=== PATIENT | male | born 1950 | race Caucasian/White ===

== ENCOUNTER 2023-03-18 11:58 | Emergency (ER) | payer OTHER, SELFPAY ==
[2023-03-18 12:13] VITALS: BP 189/97; PULSE 85; RESP 18; TEMP 36.8; O2SAT 96
--- NOTE | 2023-03-18 12:15 | DI.RAD_ITS ---
Exam(s) XR CHEST 2V PA LATERAL EXAM: XR CHEST 2V PA LATERAL CLINICAL HISTORY: copd productive cough TECHNIQUE: 2D digital imaging was performed. COMPARISON: No exams were available for comparison FINDINGS: HEART: Normal size. Aorta: Not dilated. PULMONARY VASCULATURE: Normal. LUNGS: Hyperinflated. Clear. PLEURAL SPACE: No pleural effusion or pneumothorax. BONE:Unremarkable for age. Soft tissues: Unremarkable. IMPRESSION: No acute abnormality. DATA REPOSITORY: RADIATION DOSE DELIVERED:
--- NOTE | 2023-03-18 12:35 | ED.GENADUL_ITS ---
HPI General Date/Time Provider Initiated Documentation: 03/18/23 12:21 . HPI Narrative: 72-year-old male history of COPD presents with productive cough over the last several days, shortness of breath mild nausea. Related Data Home Medications Medication Instructions Recorded Confirmed carboxymethylcellulose sodium 0.5 1 drp ophthalmic (eye) QID 08/09/21 03/18/23 % eye drops timolol maleate 0.5 % eye drops 1 drp ophthalmic (eye) DAILY 08/09/21 03/18/23 travoprost 0.004 % eye drops 1 drp ophthalmic (eye) QPM 08/09/21 03/18/23 amoxicillin 875 mg-potassium 1 tab PO BID 7 days #14 tabs 03/18/23 clavulanate 125 mg tablet azithromycin 250 mg tablet See Rx Instructions PO .COMPLEX #6 03/18/23 tabs tamsulosin 0.4 mg capsule (Flomax) 0.4 mg PO QHS 03/18/23 03/18/23 Previous Rx's Medication Instructions Recorded amoxicillin 875 mg-potassium 1 tab PO BID 7 days #14 tabs 03/18/23 clavulanate 125 mg tablet azithromycin 250 mg tablet See Rx Instructions PO .COMPLEX #6 03/18/23 tabs Allergies Allergy/AdvReac Type Severity Reaction Status Date / Time latanoprost Allergy Unknown Verified 03/18/23 12:11 General Stated Complaint: RespSymp MANJEET: 3 Review of Systems Narrative: Review of Systems Constitutional: negative Eyes: negative ENT: negative Cardiovascular: negative Respiratory: Cough, shortness of breath Gastrointestinal: negative : negative Musculoskeletal: negative Skin: negative Neurologic: negative Psych: negative Exam Narrative Exam Narrative: Physical Examination General: alert, awake, cooperative, resting comfortably, no acute distress HEENT: normocephalic, atraumatic; PERRL, EOM intact, conjunctiva normal; no nasal discharge; moist mucous membranes, oral and pharyngeal mucosa normal, tolerating secretions Neck: supple, trachea midline; full ROM Chest: normal to inspection Respiratory: normal respiratory effort, speaking in full sentences, wet cough, scattered rhonchorous breath sounds Cardiac: regular rate, regular rhythm, S1S2 intact, no murmurs rubs or gallops GI: abdomen soft, non-tender, non-distended; no palpable mass or hepatosplenomegaly Skin: no lesions, rashes or trauma appreciated Neuro: AAOx3, normal speech, moving all extremities Psych: Appropriate mood and affect Course Vital Signs Vital signs: Vital Signs Temperature 36.8 C 03/18/23 12:13 Pulse 85 03/18/23 12:13 Respiratory Rate 18 03/18/23 12:13 Blood Pressure 189/97 H 03/18/23 12:13 Pulse Oximetry 96 03/18/23 12:13 Temperature 36.8 C 03/18/23 12:13 Temperature Source Oral 03/18/23 12:13 Pulse 85 03/18/23 12:13 Respiratory Rate 18 03/18/23 12:13 Respiratory Effort Short of Breath 03/18/23 12:23 Respiratory Depth Normal 03/18/23 12:23 Blood Pressure 189/97 H 03/18/23 12:13 Blood Pressure Position Sitting 03/18/23 12:13 Pulse Oximetry 96 03/18/23 12:13 Oxygen Delivery Method Room Air 03/18/23 12:13 Oxygen Flow Rate 0 03/18/23 12:13 Pain Level 8 03/18/23 12:13 Medical Decision Making 72-year-old male history of COPD presents with productive cough for the last s everal days mild shortness of breath, afebrile nontoxic not hypoxic speaking full sentences, does have wet cough and scattered rhonchorous breath sounds. Consider viral URI versus pneumonia leading to COPD exacerbation. Lower suspicion for ACS PE pneumothorax or aortic pathology. Trial of nebs and steroids, viral swab, chest x-ray close reassessed 14:34 patient resting notably no acute distress. Will start patient on antibiotic given COPD and physical examination despite x-ray read as negative. Quality:SDOH Health Related Social Needs: No Data to Display PFSH All Active Problems (Updated 03/18/23 @ 14:35 by Melo Bryant MD) Cough (Acute) Degenerative joint disease of right hip (Acute) Greater trochanteric bursitis of both hips (Acute) DEPO MEDROL 09/24/21 Glaucoma (Chronic) Medical History Tinnitus History of rectal abscess flaca rectal abcess Erectile dysfunction Low back pain Smoker Surgical History (Updated 08/09/21 @ 13:06 by Maldonado Ivey RN) History of appendectomy Social History Smoking/Tobacco Use Status: Current every day Tobacco Type: cigarettes Smoking risk assessment performed?: Yes Alcohol Intake: current Alcohol Intake frequency: a few times a week Drug use: Never Substance use type: does not use Housing: house Do you feel safe at home: Yes Do you feel safe in your relationship?: Yes Discharge Plan Disposition Patient Disposition: Home Condition: Stable Discharge Details Clinical Impression: Cough Primary Care Provider: Unknown,Unknown ED Provider: Melo Bryant Home Meds and New Rx's Prescriptions: New azithromycin 250 mg tablet See Rx Instructions .ROUTE .COMPLEX Qty: 6 0RF Rx Instructions: For 250 mg dose pack: take 500 mg today (day 1), then 250 mg for 4 days (days 2-5) amoxicillin-pot clavulanate 875-125 mg tablet 1 tab PO BID 7 Days Qty: 14 0RF No Action carboxymethylcellulose sodium 0.5 % drops 1 drp ophthalmic (eye) QID timolol maleate 0.5 % drops 1 drp ophthalmic (eye) DAILY travoprost 0.004 % drops 1 drp ophthalmic (eye) QPM tamsulosin [Flomax] 0.4 mg capsule 0.4 mg PO QHS Discharge Instructions Instructions: Acute Cough (ED)
[2023-03-18] MEDS: Dexamethasone 10 MG/ML VIAL PO (13:03)
[2023-03-18] MEDS: Albuterol/Ipratropium 3 ML UPD VIAL UPD (13:03)
== END 2023-03-18 14:44 | disposition home or self-care (01) ==
PROVIDERS: Emergency Provider Emergency Medicine
DX: R05.9 Cough, unspecified (principal); J44.9 Chronic obstructive pulmonary disease, unspecified; F17.210 Nicotine dependence, cigarettes, uncomplicated
CPT/HCPCS: 87426; 94640; 99284; 71046; 99283; J1100; J7620

== ENCOUNTER 2023-03-19 13:30 | Inpatient (IN) | payer OTHER, SELFPAY ==
[2023-03-19] VITALS (162 sets, daily range): BP systolic 126–217; BP diastolic 64–125; PULSE 73–96; RESP 2–30; TEMP 36.8; O2SAT 90–95
--- NOTE | 2023-03-19 13:30 | RT.EKG_ITS ---
APPROVED REPORT Exam: Resting ECG Reason for Exam: sob Patient Location: E HR:89 bpm ECG Measurements Heart Rate 89 AXIS DE 209 P 85 QRSd 99 QRS 65 QT 348 T 73 QTc 423 Conclusion Sinus rhythm...normal P axis, V-rate 60- 99 Probable left atrial enlargement...P >50mS, <-0.10mV V1
[2023-03-19] MEDS: Albuterol/Ipratropium 3 ML UPD VIAL 6 ML UPD (13:48)
[2023-03-19 14:03] LABS: Abs Immature Grans 0.02 10^3/uL (0.0-0.06); Absolute Basophil Count 0.02 10^3/uL (0.0-0.2); Absolute Eosinophil Count 0.05 10^3/uL (0.0-0.7); Absolute Lymphocyte Count 0.97 10^3/uL (1.2-3.4); Absolute Monocyte Count 0.63 10^3/uL (0.1-0.8); Absolute Neutrophil Count 4.29 10^3/uL (1.2-6.7); BE (Venous) 5 mmol/L (-2-3); Basophils % 0.3; Eosinophils % 0.8; HCO3 (Venous) 30 mmol/L (23-28); HCT 46.8 % (40.0-50.0); Immature Grans % 0.3; Lactate 0.8 mmol/L (0.6-1.4); Lymphocytes % 16.2; MCH 32.6 pg (27.0-33.0); MCHC 36.3 % (32.0-36.0); MCV 90 fL (80-95); MPV 8.8 fL (8.0-11.0); Monocytes % 10.5; Neutrophils % 71.9; O2 Sat (Venous) 65 %; Platelet Count 142 10^3/uL (130-400); RBC 5.21 10^6/uL (4.36-5.78); RDW 12.4 % (11.8-14.1); TCO2 (Venous) 26 mmol/L (24-29); WBC 5.98 10^3/uL (4.4-10.8); pCO2 (Venous) 52 mmHg (41-51); pH (Venous) 7.37 (7.31-7.41); pO2 (Venous) 33 mmHg
[2023-03-19] MEDS: Dexamethasone 10 MG/ML VIAL IVP (14:14)
[2023-03-19] MEDS: Albuterol 2.5 MG/3 ML INH SOLN VIAL UPD ×2 (14:15→15:57)
[2023-03-19] MEDS: Normal Saline 1,000 ML 500 ML IV (14:15)
[2023-03-19 14:23] LABS: ALT 54 U/L (16-63); AST 48 U/L (15-37); Albumin 4.2 g/dL (3.4-5.0); Alkaline Phosphatase 61 U/L (46-116); Anion Gap 8.9 mmol/L (3-11); BUN 8 mg/dL (7-18); Bilirubin, Total 0.7 mg/dL (0.2-1.0); CO2 29.1 mmol/L (21.0-32.0); CREATININE 0.7 mg/dL (0.70-1.30); Calcium 9.3 mg/dL (8.5-10.1); Chloride 92 mmol/L (98-107); Estimated GFR 98.51 (mL/min/1.73m2); Glucose 102 mg/dL (74-106); Potassium 3.9 mmol/L (3.5-5.1); Sodium 130 mmol/L (136-145); Total Protein 7.5 g/dL (6.4-8.2); Troponin I < 50 ng/L (< or =60)
[2023-03-19 14:46] LABS: COVID-19 PCR Negative (Negative); Influenza A PCR Negative (Negative); Influenza B PCR Negative (Negative); RSV PCR Negative (Negative)
[2023-03-19] MEDS: Omnipaque 350 MG/ML 100 ML BTL IJ (14:47)
[2023-03-19 14:52] LABS: Source Nasopharynx
[2023-03-19] MEDS: Normal Saline - Diluent 50 ML VIAL IJ (14:52)
--- NOTE | 2023-03-19 15:05 | DI.CT_ITS ---
Exam(s) CT CHEST PE CTA EXAM: CT CHEST PE CTA CLINICAL HISTORY: chest pain, shortness of breath. TECHNIQUE: Imaging Protocol: CT angiography of the chest was performed using pulmonary embolus ivonne col. Multi planar reconstructions were performed. CONTRAST MATERIAL: Intravenous: Omnipaque 350 Contrast volume: 100 cc COMPARISON: No exams were available for comparison FINDINGS: CHEST: PULMONARY ARTERIES: There are no intraluminal filling defects to suggest acute pulmonary emboli. LUNGS: There are no infiltrates nor evidence of pulmonary infarction.. There are no pleural effusions . MEDIASTINUM: There is no hilar nor mediastinal adenopathy. Visualized thyroid unremarkable. CARDIAC: Heart size is upper normal. There is no pericardial effusion.Caliber of the thoracic aorta is within normal limits. No evidence of aortic dissection. There is no significant shift of the inte rventricular septum. PARTIALLY VISUALIZED UPPERMOST ABDOMEN: No significant contrast reflux into the intrahepatic IVC. No adrenal masses. No splenomegaly. Small hiatal hernia noted. OSSEOUS: No significant osseous lesions.. IMPRESSION: 1. No evidence of acute pulmonary emboli. No evidence of pulmonary infarction.No pleural effusions. 2. No evidence of aortic dissection nor pericardial effusion. Called by myself to ER provider. RADIATION DOSE DELIVERED: 320.81mGy.cm Total DLP DATA REPOSITORY: All CT scans at this facility are submitted to the National Radiology Data Registry (NRDR) Dose Index Registry (DIR) with the [employer] (ACR). RADIATION OPTIMIZATION: All CT scans at this facility use at least one of these dose optimization te chniques: automated exposure control; mA and/or kV adjustment per patient size (includes targeted exa ms where dose is matched to clinical indication); or iterative reconstruction.
--- NOTE | 2023-03-19 15:15 | RT.EKG_ITS ---
APPROVED REPORT Exam: Resting ECG Reason for Exam: chest pain Patient Location: E HR:77 bpm ECG Measurements Heart Rate 77 AXIS IA 167 P 83 QRSd 94 QRS 64 QT 366 T 71 QTc 415 Conclusion Sinus rhythm...normal P axis, V-rate 60- 99 Narrow complex normal sinus rhythm at a rate of 77. Normal axis. Intervals within normal limits. N o ST segment abnormalities. T wave inversion in aVL appears similar to prior dated earlier today.
--- NOTE | 2023-03-19 15:33 | W.ED.GENAD ---
HPI <HECTOR Sosa - Last Filed: 03/22/23 11:00> General Date/Time Provider Initiated Documentation: 03/19/23 13:37. HPI Narrative: 72-year-old male with history of glaucoma and COPD presents with report of worsening shortness of breath, has been sick for the past week, unable to ambulate without dyspnea. Denies any fever or chills. Denies any calf pain or swelling. States he started on Augmentin for suspected pneumonia yesterday. Related Data Home Medications Medication Instructions Recorded Confirmed carboxymethylcellulose sodium 0.5 1 drp ophthalmic (eye) QID 08/09/21 03/19/23 % eye drops timolol maleate 0.5 % eye drops 1 drp ophthalmic (eye) DAILY 08/09/21 03/19/23 travoprost 0.004 % eye drops 1 drp ophthalmic (eye) QPM 08/09/21 03/19/23 tamsulosin 0.4 mg capsule (Flomax) 0.4 mg PO QHS 03/18/23 03/19/23 albuterol sulfate 90 mcg/actuation 2 puff inhalation Q4H PRN #8.5 03/21/23 aerosol inhaler grams azithromycin 250 mg tablet See Rx Instructions PO .COMPLEX #6 03/21/23 tabs budesonide-formoterol HFA 160 2 puff inhalation BID #10.2 grams 03/21/23 mcg-4.5 mcg/actuation aerosol inhaler (Symbicort) inhalational spacing device #1 ea 03/21/23 (Aerochamber MV spacer) metoprolol succinate 50 mg 50 mg PO DAILY #30 tabs 03/21/23 tablet,extended release 24 hr prednisone 20 mg tablet 40 mg (2 x 20 mg) PO DAILY #10 tabs 03/21/23 Previous Rx's Medication Instructions Recorded albuterol sulfate 90 mcg/actuation 2 puff inhalation Q4H PRN #8.5 03/21/23 aerosol inhaler grams azithromycin 250 mg tablet See Rx Instructions PO .COMPLEX #6 03/21/23 tabs budesonide-formoterol HFA 160 2 puff inhalation BID #10.2 grams 03/21/23 mcg-4.5 mcg/actuation aerosol inhaler (Symbicort) inhalational spacing device #1 ea 03/21/23 (Aerochamber MV spacer) metoprolol succinate 50 mg 50 mg PO DAILY #30 tabs 03/21/23 tablet,extended release 24 hr prednisone 20 mg tablet 40 mg (2 x 20 mg) PO DAILY #10 tabs 03/21/23 Allergies Allergy/AdvReac Type Severity Reaction Status Date / Time latanoprost Allergy Unknown Other (See Verified 03/20/23 11:13 Comment) General Stated Complaint: RespSymp MANJEET: 3 Course <HECTOR Sosa - Last Filed: 03/22/23 11:00> Vital Signs Vital signs: Vital Signs Pulse 90 03/19/23 13:35 Respiratory Rate 22 03/19/23 13:35 Blood Pressure 217/110 H 03/19/23 13:35 Pulse Oximetry 92 03/19/23 13:35 Pulse 76 03/19/23 15:11 Respiratory Rate 21 03/19/23 15:28 Respiratory Effort Short of Breath, Labored 03/19/23 14:05 Respiratory Depth Shallow 03/19/23 14:05 Blood Pressure 190/89 H 03/19/23 15:11 Blood Pressure Position Sitting 03/19/23 13:39 Pulse Oximetry 92 03/19/23 13:48 Oxygen Delivery Method Room Air 03/19/23 13:48 Oxygen Flow Rate 0 03/19/23 13:48 Pain Level 0 03/19/23 13:39 Lab/Test Results Lab/Test Results: 03/19/23 13:52 Blood Blood Culture - Pending 03/19/23 13:44 Blood Blood Culture - Pending Laboratory Tests Range/Units 03/19/23 03/19/23 13:50 13:52 WBC (4.4-10.8) 10^3/uL 5.98 RBC (4.36-5.78) 10^6/uL 5.21 Hgb (13.5-17.5) g/dL 17.0 Hct (40.0-50.0) % 46.8 MCV (80-95) fL 90 MCH (27.0-33.0) pg 32.6 MCHC (32.0-36.0) % 36.3 H RDW (11.8-14.1) % 12.4 Plt Count (130-400) 10^3/uL 142 MPV (8.0-11.0) fL 8.8 Immature Gran % 0.3 Neutrophils % 71.9 Lymphocytes % 16.2 Monocytes % 10.5 Eosinophils % 0.8 Basophils % 0.3 Nucleated RBC % (0.0-0.3) % 0.0 Absolute Neutrophils (1.2-6.7) 10^3/uL 4.29 Absolute Lymphocytes (1.2-3.4) 10^3/uL 0.97 L Absolute Monocytes (0.1-0.8) 10^3/uL 0.63 Absolute Eosinophils (0.0-0.7) 10^3/uL 0.05 Absolute Basophils (0.0-0.2) 10^3/uL 0.02 VBG pH (7.31-7.41) 7.37 VBG pCO2 (41-51) mmHg 52 H VBG pO2 mmHg 33 VBG HCO3 (23-28) mmol/L 30 H VBG Total CO2 (24-29) mmol/L 26 VBG O2 Saturation % 65 VBG Base Excess (-2-3) mmol/L 5 H VBG Lactate (0.6-1.4) mmol/L 0.8 Sodium (136-145) mmol/L 130 L Potassium (3.5-5.1) mmol/L 3.9 Chloride (98-107) mmol/L 92 L Carbon Dioxide (21.0-32.0) mmol/L 29.1 Anion Gap (3-11) mmol/L 8.9 BUN (7-18) mg/dL 8 Creatinine (0.70-1.30) mg/dL 0.7 Est GFR (CKD-EPI 2020) (mL/min/1.73m2) 98.51 Glucose (74-106) mg/dL 102 Calcium (8.5-10.1) mg/dL 9.3 Total Bilirubin (0.2-1.0) mg/dL 0.7 AST (15-37) U/L 48 H ALT (16-63) U/L 54 Alkaline Phosphatase (46-116) U/L 61 Troponin I (< or =60) ng/L < 50 Total Protein (6.4-8.2) g/dL 7.5 Albumin (3.4-5.0) g/dL 4.2 COVID-19 Source Nasopharynx SARS-CoV-2 (PCR) (Negative) Negative Influenza Type A (PCR) (Negative) Negative Influenza Type B (PCR) (Negative) Negative RSV (PCR) (Negative) Negative Medical Decision Making <HECTOR Sosa - Last Filed: 03/22/23 11:00> 72-year-old male presenting with report of dyspnea, persistent cough, cannot catch his breath per patient On exam, patient and moderate respiratory distress, diminished with diffuse wheezing, oxygen 92% on room air, not hypoxic with exertion but unable to ambulate secondary to dyspnea CTA pending as chest x-ray clear yesterday Initially quite hypertensive, blood pressure is mildly improved 190/89, did have 1 episode of chest pain while ambulating, EKG performed without acute change, specifically no injury or ischemia noted Will repeat troponin level Low suspicion clinically for cardiac etiology of patient's complaints I suspect patient may benefit from inpatient hospitalization for steroids, repeat nebulizers, and antibiotics for bronchitis, pending CT chest at this time Will transition care Quality:SDOH Health Related Social Needs: No Data to Display <Danielle Harris NP - Last Filed: 03/19/23 19:58> 72-year-old male presenting with report of dyspnea, persistent cough, cannot catch his breath per patient On exam, patient and moderate respiratory distress, diminished with diffuse wheezing, oxygen 92% on room air, not hypoxic with exertion but unable to ambulate secondary to dyspnea CTA pending as chest x-ray clear yesterday Initially quite hypertensive, blood pressure is mildly improved 190/89, did have 1 episode of chest pain while ambulating, EKG performed without acute change, specifically no injury or ischemia noted Will repeat troponin level Low suspicion clinically for cardiac etiology of patient's complaints I suspect patient may benefit from inpatient hospitalization for steroids, repeat nebulizers, and antibiotics for bronchitis, pending CT chest at this time Will transition care 1605: Care assumed from provider (HECTOR Sosa) Please see their initial HPI, PE, and documentation. Discussed patient details and case and pending workup and disposition. Patient is hemodynamically stable, and alert and oriented. At the time of signout awaiting CT result. Patient is on room air satting approximately 93%. He does have congestion noted, expiratory wheezes throughout. He does have shallow breaths and some spasmodic type cough. He denies any chest pain currently. He is alert and oriented he was given Augmentin yesterday he does have an albuterol inhaler at home. He reports that he took some Mucinex last night and brought up some green phlegm. CT is negative, heart size is upper normal, no pleural effusions. [facility] Due to patient's dyspnea and decreased road challenge I will consider calling the [place] for possible transfer and admission. Pending repeat troponin. Patient has received his second albuterol nebulizer he has had 2 DuoNebs previously to this. He is O2 sat is now 90%-91% on room air. His blood pressure is 185/98. Heart rate is 82. 1644: [place] paged for admission, DDX includes pulmonary fibrosis, Pneumonia, however negative CT, for PE, Infiltrates, POCUS exam ordered, will request assistance with Dr. Whaley, POCUS. Per Dr. Whaley POCUS is unremarkable normal EF, please see his official report. 1708: [facility] paged. Patient was placed on 3 L nasal cannula by staff nurse icu resource team he is satting 94% at this time. 1728: [place] [facility] spoke with [facility], he reports they are at capacity. Will page hospitalist. 1817: Hospitalist paged by [facility] maker, . ETOh level added on and TSH. 1829: Dr. Kline hospitalist discussed patient case and details, he agrees to accept patient for COPD exacerbation and hypoxia unresponsive to medications. . Informed patient and family on plan of care they verbalized understanding. This text was generated using [employer] dictation system, please disregard any oddities of phrase or misspellings. Imaging Data Radiologic Study: Imaging: CT Scan Radiologist's impression: Exam(s) a CT:CT chest PE CTA Exam(s) CT CHEST PE CTA EXAM: CT CHEST PE CTA CLINICAL HISTORY: chest pain, shortness of breath. TECHNIQUE: Imaging Protocol: CT angiography of the chest was performed using pulmonary embolus protocol. Multi planar reconstructions were performed. CONTRAST MATERIAL: Intravenous: Omnipaque 350 Contrast volume: 100 cc COMPARISON: No exams were available for comparison FINDINGS: CHEST: PULMONARY ARTERIES: There are no intraluminal filling defects to suggest acute pulmonary emboli. LUNGS: There are no infiltrates nor evidence of pulmonary infarction.. There are no pleural effusions. MEDIASTINUM: There is no hilar nor mediastinal adenopathy. Visualized thyroid unremarkable. CARDIAC: Heart size is upper normal. There is no pericardial effusion.Caliber of the thoracic aorta is within normal limits. No evidence of aortic dissection. There is no significant shift of the interventricular septum. PARTIALLY VISUALIZED UPPERMOST ABDOMEN: No significant contrast reflux into the intrahepatic IVC. No adrenal masses. No splenomegaly. Small hiatal hernia noted. OSSEOUS: No significant osseous lesions.. IMPRESSION: 1. No evidence of acute pulmonary emboli. No evidence of pulmonary infarction.No pleural effusions. 2. No evidence of aortic dissection nor pericardial effusion. Lab Data Lab results reviewed: Yes I reviewed the patient's lab results. Labs: 03/19/23 13:52 Blood Blood Culture - Pending 03/19/23 13:44 Blood Blood Culture - Pending Laboratory Tests Range/Units 03/19/23 03/19/23 13:50 13:52 WBC (4.4-10.8) 10^3/uL 5.98 RBC (4.36-5.78) 10^6/uL 5.21 Hgb (13.5-17.5) g/dL 17.0 Hct (40.0-50.0) % 46.8 MCV (80-95) fL 90 MCH (27.0-33.0) pg 32.6 MCHC (32.0-36.0) % 36.3 H RDW (11.8-14.1) % 12.4 Plt Count (130-400) 10^3/uL 142 MPV (8.0-11.0) fL 8.8 Immature Gran % 0.3 Neutrophils % 71.9 Lymphocytes % 16.2 Monocytes % 10.5 Eosinophils % 0.8 Basophils % 0.3 Nucleated RBC % (0.0-0.3) % 0.0 Absolute Neutrophils (1.2-6.7) 10^3/uL 4.29 Absolute Lymphocytes (1.2-3.4) 10^3/uL 0.97 L Absolute Monocytes (0.1-0.8) 10^3/uL 0.63 Absolute Eosinophils (0.0-0.7) 10^3/uL 0.05 Absolute Basophils (0.0-0.2) 10^3/uL 0.02 VBG pH (7.31-7.41) 7.37 VBG pCO2 (41-51) mmHg 52 H VBG pO2 mmHg 33 VBG HCO3 (23-28) mmol/L 30 H VBG Total CO2 (24-29) mmol/L 26 VBG O2 Saturation % 65 VBG Base Excess (-2-3) mmol/L 5 H VBG Lactate (0.6-1.4) mmol/L 0.8 Sodium (136-145) mmol/L 130 L Potassium (3.5-5.1) mmol/L 3.9 Chloride (98-107) mmol/L 92 L Carbon Dioxide (21.0-32.0) mmol/L 29.1 Anion Gap (3-11) mmol/L 8.9 BUN (7-18) mg/dL 8 Creatinine (0.70-1.30) mg/dL 0.7 Est GFR (CKD-EPI 2020) (mL/min/1.73m2) 98.51 Glucose (74-106) mg/dL 102 Calcium (8.5-10.1) mg/dL 9.3 Total Bilirubin (0.2-1.0) mg/dL 0.7 AST (15-37) U/L 48 H ALT (16-63) U/L 54 Alkaline Phosphatase (46-116) U/L 61 Troponin I (< or =60) ng/L < 50 Total Protein (6.4-8.2) g/dL 7.5 Albumin (3.4-5.0) g/dL 4.2 COVID-19 Source Nasopharynx SARS-CoV-2 (PCR) (Negative) Negative Influenza Type A (PCR) (Negative) Negative Influenza Type B (PCR) (Negative) Negative RSV (PCR) (Negative) Negative PFSH <HECTOR Sosa - Last Filed: 03/22/23 11:00> All Active Problems (Updated 03/22/23 @ 00:01 by KAIA MADRIGAL) Viral syndrome (Acute) Hypertension (Chronic) COPD exacerbation (Acute) Cough (Acute) Degenerative joint disease of right hip (Acute) Greater trochanteric bursitis of both hips (Acute) DEPO MEDROL 09/24/21 Glaucoma (Chronic) Medical History Tinnitus History of rectal abscess flaca rectal abcess Erectile dysfunction Low back pain Smoker Surgical History History of appendectomy Social History Smoking/Tobacco Use Status: Current every day Tobacco Type: cigarettes Smoking risk assessment performed?: Yes Alcohol Intake: current Alcohol Intake frequency: a few times a week Drug use: Never Substance use type: does not use Housing: house Do you feel safe at home: Yes Do you feel safe in your relationship?: Yes Sign Out <HECTOR Sosa - Last Filed: 03/22/23 11:00> Sign Out Data: Sign Out Comment: pending cta, reassessment and dispo Last updated by Katheryn Avina PA at 03/19/23 15:56 PAWSS <HECTOR Sosa - Last Filed: 03/22/23 11:00> Have you Been Recently Intoxicated or Drunk Within the Last 30 days?: No Have you Ever Experienced Previous Episodes of Alcohol Withdrawal?: No Have you ever Experienced Withdrawal Seizures?: No Have you ever Experienced Delirium Tremens(DT)s?: No Have you ever undergone Alcohol Rehabilitation Treatment (i.e, inpt ot outpatient treatment programs)?: No Have you ever Experienced Blackouts?: No Have you ever Combined Alcohol with other Downers within the last 90 days?: No Have you ever Combined Alcohol with any other Substance of Abuse during the last 90 days?: No Result: 0 <Danielle Harris NP - Last Filed: 03/19/23 19:58> Result: 0 Discharge Plan Disposition Patient Disposition: Admit to [facility] Discharge Details Clinical Impression: Hypoxia, COPD exacerbation, Hypertension Admit Date/Time: 03/19/23 18:44 Admit Provider: Barry Cheatham Attending Provider: Barry Cheatham Primary Care Provider: Unknown,Unknown ED Provider: Danielle Harris Discharge Data Discharge Date/Time-TO BE ENTERED AT DEPARTURE: 03/19/23 20:21
[2023-03-19 16:37] LABS: NT-proBNP 118 pg/mL (<300)
--- NOTE | 2023-03-19 16:50 | W.EDPROG ---
Date of service: 03/19/23 Time of Service: 16:50 Medical Decision Making I was asked to see this patient by his advanced practitioner. In brief this is a 72-year-old male with an extensive history of tobacco use with shortness of breath and hypoxia. I completed a limited bedside echocardiogram which was reassuring. He had no B-lines to suggest acute heart failure as the cause of his hypoxia. It certainly possible that he could have pulmonary hypertension given extensive tobacco use. Given his acute respiratory failure with hypoxia history he will benefit from hospitalization. He may benefit from an echocardiogram or possibly pulmonary function testing. He had a CT performed today showing no PE no pleural effusions and no evidence of aortic dissection. His bicarbonate was normal reassuring against chronic retention. He was no making troponin and I do not feel that he requires tertiary care transfer at this stage. His venous blood gas did not show any acidemia but did show mild hypercarbia. Quality:SDAZ Health Related Social Needs: No Data to Display Sign Out Sign Out Data: Sign Out Comment: pending cta, reassessment and dispo Last updated by Katheryn Avina PA at 03/19/23 15:56 Discharge Plan Disposition Patient Disposition: Admit to [facility] Discharge Details Clinical Impression: Hypoxia, COPD exacerbation, Hypertension Admit Date/Time: 03/19/23 18:44 Admit Provider: Barry Cheatham Attending Provider: Barry Cheatham Primary Care Provider: Unknown,Unknown ED Provider: Danielle aHrris POCUS Exam (ED) Limited Cardiac Exam DATE OF EXAM: 03/19/23 TIME OF EXAM: 17:04 PROVIDER THAT PERFORMED THE STUDY: Alpesh Whaley IS THIS A REPEAT EXAM DURING THIS ENCOUNTER: no REASON FOR EXAM: Dyspnea VISUALIZED STRUCTURES: Four Chambers, Left ventricle and LVOT VIEW OBTAINED: Apical 4-Chamber, Parasternal long-axis, Subxiphoid and Other (Bilateral lungs) PERTINENT FINDINGS/IMPRESSION: No LV dysfunction and No pericardial effusion DIFFERENTIAL DIAGNOSES: Aortic outflow track less than 4 cm, good squeeze, RV less than LV, no significant pericardial effusion. No B-lines bilaterally. Exam complete
[2023-03-19 17:14] LABS: Troponin I < 50 ng/L (< or =60)
--- NOTE | 2023-03-19 18:42 | W.PM.HP.N ---
Date of service: 03/19/23 Time of Service: 18:42 Assessment and Plan Assessment and plan (1) Acute hypoxic respiratory failure: Start date: 03/19/23 Status: Acute Assessment and plan: This is a 72-year-old gentleman who is chronic smoker presenting with complications of a most likely viral URI and viral syndrome with some abdominal symptoms. He was initiated on oral antibiotics and this will be continued with IV antibiotics while hospitalized as well as close supplementation as needed and for aggressive nebulizer treatments. Being a smoker and may be slow to resolve. He presently is not requiring oxygen supplementation. He did have mild pCO2 elevation and increased bicarb indicating more of a chronic COPD picture though he is untreated as outpatient. He should consider tobacco cessation and at least rescue inhalers as outpatient. He is a full code. (2) COPD exacerbation: Start date: 03/19/23 Status: Acute Assessment and plan: This is a patient who has no history of COPD though he does have daily tobacco use at 1.5 packs/day. He was advised to stop smoking long-term and we will continue inpatient treatment with his mild hypoxemia and significant findings on physical exam with expiratory wheeze. He was negative for RSV/COVID/flu and does have some mild GI symptoms which may indicate viral syndrome. Since his pain is associated with left lower quadrant, diverticulitis should be considered if this worsens. Further evaluation with a CT of the abdomen would be indicated. At this time he is mostly having respiratory symptoms. (3) Viral syndrome: Start date: 03/19/23 Status: Acute Assessment and plan: Associated with upper respiratory infection and some focal left lower quadrant abdominal discomfort which should be observed for now. Consider imaging and extension of IV antibiotic therapy if this worsens. For now monitor on regular diet. (4) Hypertension: Status: Chronic Assessment and plan: Patient does have a history of chronic hypertension but is not on medical therapy for this problem though it appears to be exacerbated in the ED and has improved with respiratory treatments and initiation of low-dose metoprolol. At discharge, long-term treatment will be continued at the [facility] with follow-up. Qualifiers: Hypertension type: primary hypertension Qualified Code(s): I10 - Essential (primary) hypertension History of Present Illness History of Present Illness Chief Complaint: Cough and wheezing with chest pressure and difficulty breathing Narrative: This is a 72-year-old male patient chronically smokes tobacco at 1.5 packs per day but is not on respiratory treatments, presenting with onset of cold symptoms 03/15/2023 and working with abdominal symptoms having slight left lower quadrant abdominal discomfort and loose stools on 03/16/2023. Patient's has a fractured heel and he is doing the shopping which he thinks increase his exposure to viral infections from his usual baseline behavior. He continues to smoke tobacco but symptoms persisted and he eventually reported to the ED on 03/18/2023 with initiation of oral antibiotic therapy and inhaler therapy but then returning on the day of admission 03/19/2023 with worsening symptoms. He was borderline hypoxic and VBG in the ED did reveal possible chronic respiratory problems with his bicarb elevated and pCO2 slightly elevated. He did have some oxygen therapy in the ED with improvement of his pulse oximeter from the low 90s to 93%. Verbally it was stated that his pulse oximeter did dip below 90%. When I saw the patient he was off oxygen but still having some difficulty breathing and expiratory wheeze audible at the bedside. He denies any significant fever and had no blood with his loose stools. He denies any significant vomiting. He does have a history of a colonoscopy when he was in [facility] and 31 years of age in the service. [facility] and states that he does do colon cancer screening with a test card twice a year. He has no history of diverticulosis. CT of the chest did not reveal any acute infiltrates or pulmonary embolus. He was initiated on IV steroids in the ED and this will be continued with patient being switched over to IV antibiotic therapy with Rocephin and Zithromax having been on oral Augmentin and Zithromax as an outpatient. In the ED the patient WBC was normal and troponin was negative. He did complain of some slight discomfort of his chest with his coughing. He does ruminate somewhat over his history but appears to be a fair historian. He is on minimal medical therapy at the [facility]. He is a full code. Review of Systems Narrative: 13 point review of systems otherwise unrevealing or stable. The patient's abdominal discomfort is intermittent at this time. PFSH All Active Problems (Updated 03/20/23 @ 10:19 by Barry Cheatham) Viral syndrome (Acute) Acute hypoxic respiratory failure (Acute) Hypertension (Chronic) COPD exacerbation (Acute) Hypoxia (Acute) Cough (Acute) Degenerative joint disease of right hip (Acute) Greater trochanteric bursitis of both hips (Acute) DEPO MEDROL 09/24/21 Glaucoma (Chronic) Medical History Tinnitus History of rectal abscess flaca rectal abcess Erectile dysfunction Low back pain Smoker Surgical History History of appendectomy Social History Smoking/Tobacco Use Status: Current every day Tobacco Type: cigarettes Smoking risk assessment performed?: Yes Alcohol Intake: current Alcohol Intake frequency: a few times a week Drug use: Never Substance use type: does not use Housing: house Do you feel safe at home: Yes Do you feel safe in your relationship?: Yes Meds Allergies and Home Medications Allergies Allergy/AdvReac Type Severity Reaction Status Date / Time latanoprost Allergy Unknown Verified 03/19/23 13:38 Home Medications Medication Instructions Recorded Confirmed Type carboxymethylcellulose sodium 0.5 1 drp ophthalmic (eye) QID 08/09/21 03/19/23 History % eye drops timolol maleate 0.5 % eye drops 1 drp ophthalmic (eye) DAILY 08/09/21 03/19/23 History travoprost 0.004 % eye drops 1 drp ophthalmic (eye) QPM 08/09/21 03/19/23 History amoxicillin 875 mg-potassium 1 tab PO BID 7 days #14 tabs 03/18/23 03/19/23 Rx clavulanate 125 mg tablet azithromycin 250 mg tablet See Rx Instructions PO .COMPLEX #6 03/18/23 03/19/23 Rx tabs tamsulosin 0.4 mg capsule (Flomax) 0.4 mg PO QHS 03/18/23 03/19/23 History Exam Narrative Exam Narrative: General: Patient appears appropriate for age, thinly built and alert and oriented x 3. He is in no acute distress but slightly anxious with pressured speech. HEENT: Normocephalic, eyes with pupils equal and react light symmetrically, extraocular movement intact and sclera anicteric. Oropharynx with moist mucosa and fair dentition. Neck: Supple without JVD. Back: Normal posture without CVA tenderness. Lungs: Poor aeration diffusely with increased expiratory phase and diffuse expiratory wheeze with no focalizing rales or rhonchi. Increased wheeze and upper airway noise with cough. Heart: Regular rate and rhythm without appreciated. Abdomen: Scaphoid contour, soft and overall nontender to palpation with no palpable hepatosplenomegaly. No focalizing guarding to deep palpation left lower abdomen though this makes him uncomfortable. Bowel sounds positive all quadrants Genitalia/rectal: Exam deferred. Extremities: Without clubbing, cyanosis or pitting edema. Good cap refill. Skin: Darkly tanned with actinic changes over sun exposed areas, rough texture over sun exposed areas, otherwise normal color, warm and dry. Neuro: Cranial nerves II through XII grossly intact, no focal motor deficits. No tremor. Psych: Slightly anxious with pressured speech, normal mood. No abnormal thought processes. Remote and recent memory appear grossly intact. Results Imaging Imaging Studies: EXAM: CT CHEST PE CTA CLINICAL HISTORY: chest pain, shortness of breath. TECHNIQUE: Imaging Protocol: CT angiography of the chest was performed using pulmonary embolus protocol. Multi planar reconstructions were performed. CONTRAST MATERIAL: Intravenous: Omnipaque 350 Contrast volume: 100 cc COMPARISON: No exams were available for comparison FINDINGS: CHEST: PULMONARY ARTERIES: There are no intraluminal filling defects to suggest acute pulmonary emboli. LUNGS: There are no infiltrates nor evidence of pulmonary infarction.. There are no pleural effusions. MEDIASTINUM: There is no hilar nor mediastinal adenopathy. Visualized thyroid unremarkable. CARDIAC: Heart size is upper normal. There is no pericardial effusion.Caliber of the thoracic aorta is within normal limits. No evidence of aortic dissection. There is no significant shift of the interventricular septum. PARTIALLY VISUALIZED UPPERMOST ABDOMEN: No significant contrast reflux into the intrahepatic IVC. No adrenal masses. No splenomegaly. Small hiatal hernia noted. OSSEOUS: No significant osseous lesions.. IMPRESSION: 1. No evidence of acute pulmonary emboli. No evidence of pulmonary infarction.No pleural effusions. 2. No evidence of aortic dissection nor pericardial effusion. Labs 03/20/23 06:07 03/20/23 06:07 Labs: Laboratory Results - last 24 hr 03/19/23 03/19/23 03/19/23 13:50 13:52 16:48 WBC 5.98 RBC 5.21 Hgb 17.0 Hct 46.8 MCV 90 MCH 32.6 MCHC 36.3 H RDW 12.4 Plt Count 142 MPV 8.8 Immature Gran % 0.3 Neutrophils % 71.9 Lymphocytes % 16.2 Monocytes % 10.5 Eosinophils % 0.8 Basophils % 0.3 Nucleated RBC % 0.0 Absolute Neutrophils 4.29 Absolute Lymphocytes 0.97 L Absolute Monocytes 0.63 Absolute Eosinophils 0.05 Absolute Basophils 0.02 VBG pH 7.37 VBG pCO2 52 H VBG pO2 33 VBG HCO3 30 H VBG Total CO2 26 VBG O2 Saturation 65 VBG Base Excess 5 H VBG Lactate 0.8 Sodium 130 L Potassium 3.9 Chloride 92 L Carbon Dioxide 29.1 Anion Gap 8.9 BUN 8 Creatinine 0.7 Est GFR (CKD-EPI 2020) 98.51 Glucose 102 Calcium 9.3 Total Bilirubin 0.7 AST 48 H ALT 54 Alkaline Phosphatase 61 Troponin I < 50 < 50 NT-Pro-B Natriuret Pep 118 Total Protein 7.5 Albumin 4.2 COVID-19 Source Nasopharynx SARS-CoV-2 (PCR) Negative Influenza Type A (PCR) Negative Influenza Type B (PCR) Negative RSV (PCR) Negative Last Vital Signs Pulse 76 03/19/23 17:31 Resp 18 03/19/23 17:32 BP 165/97 H 03/19/23 17:31 Pulse Ox 94 03/19/23 16:54 PAWSS Have you Been Recently Intoxicated or Drunk Within the Last 30 days?: No Have you Ever Experienced Previous Episodes of Alcohol Withdrawal?: No Have you ever Experienced Withdrawal Seizures?: No Have you ever Experienced Delirium Tremens(DT)s?: No Have you ever undergone Alcohol Rehabilitation Treatment (i.e, inpt ot outpatient treatment programs)?: No Have you ever Experienced Blackouts?: No Have you ever Combined Alcohol with other Downers within the last 90 days?: No Have you ever Combined Alcohol with any other Substance of Abuse during the last 90 days?: No Result: 0 Time Spent Time spent with Patient: >75 minutes Time was spent: preparing to see the patient(eg.review tests), obtaining and/or reviewing separately otained hiistory, ordering medications,tests, procedures, indepentently interpreting results, counseling the patient and care coordination
[2023-03-19 18:50] LABS: ETHANOL BLOOD < 3.0 mg/dL (<10)
[2023-03-19] MEDS: methylPREDNISolone SUCC 125 MG VIAL 80 MG IVP (22:10)
[2023-03-19] MEDS: AZITHROMYCIN 500 MG in Normal Saline 250 ML 250 MG IVPB (22:12)
[2023-03-19] MEDS: Normal Saline Flush 10 ML SYR IVP (22:12)
[2023-03-19] MEDS: cefTRIAXone 1 GM/50 ML BAG IVPB (22:12)
[2023-03-19] MEDS: Tamsulosin 0.4 MG CAPCR PO (22:13)
[2023-03-19] MEDS: Albuterol/Ipratropium 3 ML UPD VIAL UPD (22:26)
[2023-03-20] VITALS (11 sets, daily range): BP systolic 134–167; BP diastolic 80–91; PULSE 65–85; RESP 2–20; TEMP 36.6–37.3; O2SAT 90–96
[2023-03-20] MEDS: Albuterol/Ipratropium 3 ML UPD VIAL UPD ×4 (03:14→20:18)
[2023-03-20] MEDS: methylPREDNISolone SUCC 125 MG VIAL 80 MG IVP ×3 (05:45→22:03)
[2023-03-20 06:56] LABS: HCT 41.9 % (40.0-50.0); HGB 15.4 g/dL (13.5-17.5); MCH 32.9 pg (27.0-33.0); MCHC 36.8 % (32.0-36.0); MCV 90 fL (80-95); MPV 9.4 fL (8.0-11.0); Platelet Count 158 10^3/uL (130-400); RBC 4.68 10^6/uL (4.36-5.78); RDW 12.3 % (11.8-14.1); RDW-SD 40.2 fL; WBC 4.27 10^3/uL (4.4-10.8)
[2023-03-20 07:13] LABS: ALT 38 U/L (16-63); AST 27 U/L (15-37); Albumin 3.3 g/dL (3.4-5.0); Alkaline Phosphatase 48 U/L (46-116); Anion Gap 8.5 mmol/L (3-11); BUN 12 mg/dL (7-18); Bilirubin, Total 0.4 mg/dL (0.2-1.0); CO2 27.5 mmol/L (21.0-32.0); CREATININE 0.6 mg/dL (0.70-1.30); Calcium 9.2 mg/dL (8.5-10.1); Chloride 101 mmol/L (98-107); Glucose 139 mg/dL (74-106); Sodium 137 mmol/L (136-145); Total Protein 6.2 g/dL (6.4-8.2)
[2023-03-20] MEDS: Metoprolol 25 MG TAB PO ×2 (08:26→20:56)
[2023-03-20] MEDS: Normal Saline Flush 10 ML SYR IVP ×3 (08:33→22:04)
[2023-03-20] MEDS: Refresh PLUS Eye Drops 0.4ml OP ×3 (08:34→20:56)
[2023-03-20] MEDS: Timolol 0.5% 5 ML BTL OP (08:40)
[2023-03-20 08:59] LABS: Lab Add On Test DONE
[2023-03-20 09:53] LABS: Procalcitonin 0.2 ng/mL
[2023-03-20] MEDS: Albuterol 2.5 MG/3 ML INH SOLN VIAL UPD (11:40)
[2023-03-20] MEDS: Bisacodyl 10 MG SUPP PR (12:20)
--- NOTE | 2023-03-20 12:41 | PDOC.CMIN ---
Date of service: 03/20/23 Time of Service: 12:42 Care Management Initial Assmt Initial Assessment REASON FOR HOSPITALIZATION:: Acute hypoxic respiratory failure, COPD exacerbation PREVIOUS FUNCTIONAL STATUS/SOCIAL/FAMILY SUPPORTS:: Davin lives in [place] with his , Nora. He has one daughter who lives in [place], and three step children. He is a who served 23 years in the [employer]. 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 He is independent at baseline. CURRENT FUNCTIONAL STATUS:: Davin was sitting up on the edge of his bed when CM met with him. His had been in earlier, and CM briefly met with her. Davin had a breathing treatment, therefore CM met with him again later in the day, and his had left to return home. She has a fractured heel, and Davin expressed concern about her, as he has been taking care of her. He reported that her daughter will be staying with her tonight to offer support. Davin discussed how he has always been very independent, only retiring about three years ago, but that he has been more limited lately due to his COPD. He was pleasant and engaged well in conversation, describing some of his adventures oversees with the [employer]. [facility] He is hoping to return home tomorrow, but he is comfortable remaining overnight. CM discussed the importance of self care, especially when one is providing care to a loved one. CM will continue to follow. ADVANCE DIRECTIVES:: Not on file. Has patient been provided with info about the portal/API?: Yes Did the patient sign up for the portal?: No CODE STATUS:: Full Code INSURANCE COVERAGE / FINANCIAL ISSUES:: [facility] CURRENT HOME/COMMUNITY SERVICES/EQUIPMENT:: None. PRIMARY CARE PHYSICIAN:: Dr. Gia Storey, [facility] POTENTIAL DISCHARGE NEEDS:: Evaluations for further needs, follow up appointments. PATIENT/FAMILY EDUCATION NEEDS:: Review discharge instructions and limitations, discussion of self care needs including ask me three. ANTICIPATED BARRIERS TO DISCHARGE:: None identified at this time. TRANSPORTATION:: Via private vehicle by family PLAN:: Anticipate Davin will return home once medically cleared. He will be driven him home via private vehicle by family. He will follow up with his PCP and discharge plan of care. CM will continue to follow. PFSH All Active Problems (Updated 03/20/23 @ 10:19 by Barry Cheatham) Viral syndrome (Acute) Acute hypoxic respiratory failure (Acute) Hypertension (Chronic) COPD exacerbation (Acute) Hypoxia (Acute) Cough (Acute) Degenerative joint disease of right hip (Acute) Greater trochanteric bursitis of both hips (Acute) DEPO MEDROL 09/24/21 Glaucoma (Chronic) Medical History Tinnitus History of rectal abscess flaca rectal abcess Erectile dysfunction Low back pain Smoker Surgical History History of appendectomy Social History Smoking/Tobacco Use Status: Current every day Tobacco Type: cigarettes Smoking risk assessment performed?: Yes Alcohol Intake: current Alcohol Intake frequency: a few times a week Drug use: Never Substance use type: does not use Housing: house Do you feel safe at home: Yes Do you feel safe in your relationship?: Yes SDOH(Care Management) Screening Will the Patient Participate in the Screening?: Yes Do you worry about having a steady place to live?: no Problems where you live: no known problems In the past 12 months, have you had to go without electric, gas, oil or water in your home?: no Have you or anyone in your house had to go without enough food to eat?: no Has lack of transportation kept you from medical appointments or from doing things needed for daily living?: no Has anyone in your support network made you feel unsafe for any reason?: no
--- NOTE | 2023-03-20 13:42 | PHA.REVIEW2 ---
Pharmacy Admission Review Admission Clinical Review Admission Pharmacy Review: Viral syndrome (Acute) Acute hypoxic respiratory failure (Acute) COPD exacerbation (Acute) Hypoxia (Acute) latanoprost Allergy (Unknown, Verified 03/20/23 11:13) Other (See Comment) Resuscitation Status Full Code Height 5 ft 8 in Weight 57.4 kg Pharmacy Admission Review Renal Dosing Renal Dosing: BUN 12 mg/dL (7-18) 03/20/23 06:07 Creatinine 0.6 mg/dL (0.70-1.30) L 03/20/23 06:07 Medications needing adjustments: Reviewed (CrCl 55.01 mL/min) Anticoagulation Anticoagulation: Hgb 15.4 g/dL (13.5-17.5) 03/20/23 06:07 Hct 41.9 % (40.0-50.0) 03/20/23 06:07 Plt Count 158 10^3/uL (130-400) 03/20/23 06:07 Creatinine 0.6 mg/dL (0.70-1.30) L 03/20/23 06:07 DVT Prophylaxis: Reviewed Medications: Enoxaparin (40mg q24h) Relevant Labs Relevant Labs: Sodium 137 mmol/L (136-145) 03/20/23 06:07 Potassium 4.0 mmol/L (3.5-5.1) 03/20/23 06:07 Chloride 101 mmol/L (98-107) 03/20/23 06:07 Magnesium 2.0 mg/dL (1.8-2.4) 03/20/23 06:07 Electrolytes, C-Reactive P, ESR: Reviewed (Glucose 139) Cardiac Review Cardiac Review: Troponin I < 50 ng/L (< or =60) 03/19/23 16:48 NT-Pro-B Natriuret Pep 118 pg/mL (<300) 03/19/23 13:52 Blood Pressure 167/89 1131 Blood Pressure 134/80 0744 Blood Pressure 136/85 0309 BP, HR, EF%: Reviewed (HR WNL, BP 167/89) QTc Review QTc: Reviewed (415 03/19/23) IV to PO Switch IV Medications: Reviewed Home Meds Home Med List reviewed: Reviewed Current Meds Current Medication Order Review: Reviewed Pharmacy Antibiotic Review Relevant Labs: Relevant Labs 03/20/23 06:07 Procalcitonin 0.2 Pharmacy Antibiotic Activity: C/S review and Reviewed, no change Comments: Currently on azithromycin and ceftriaxone day 2. Blood cultures pending.
--- NOTE | 2023-03-20 14:52 | PGE_ITS ---
Date of Service Date of service: 03/20/23 Time of Service: 10:00 Assessment and Plan Assessment and plan (1) Acute hypoxic respiratory failure: Status: Acute Assessment and plan: RT consult Nebs Abx IS/vibrapep O2 PRN keep SPO2 > 88% (2) COPD exacerbation: Status: Acute Assessment and plan: Continues daily tobacco use at 1.5 packs/day. encourage smoking cessation, offer NRT Negative for RSV/COVID/flu (3) Viral syndrome: Status: Acute Assessment and plan: Associated with upper respiratory infection (4) Hypertension: Status: Chronic Assessment and plan: Started on Metoprolol on admission for HTN Monitor BP Qualifiers: Hypertension type: primary hypertension Qualified Code(s): I10 - Essential (primary) hypertension (5) Constipation: Status: Acute Assessment and plan: No BM in 4 days per patient dulcolax supp Miralax viktor Subjective Subjective Patient reports: no new complaints, feels better, tolerating a regular diet, no bowel movement and shortness of breath; denies bowel movement, diarrhea, nausea or vomiting Interval history since last seen: patient complains of not being able to have a BM in 4 days, takes breaks to catch his breath, about 5 word dyspnea Exam Narrative Exam Narrative: General: Patient is awake, alert, oriented x 4 HEENT: Normocephalic, eyes with pupils equal and react light symmetrically, extraocular movement intact and sclera anicteric. Oropharynx with moist mucosa and fair dentition. Neck: Supple without JVD. Back: Normal posture without CVA tenderness. Lungs: Poor aeration diffusely with increased expiratory phase, some expiratory wheezes, increased WOB, 4-5 word dyspnea Heart: Regular rate and rhythm , no murmur heard Abdomen: Scaphoid contour, soft and overall nontender to palpation with no palpable hepatosplenomegaly. Bowel sounds positive Extremities: Without clubbing, cyanosis or pitting edema. Good cap refill. Skin: no lesions or rashes noted Neuro: Cranial nerves II through XII grossly intact, no focal motor deficits. No tremor. Psych: No abnormal thought processes. Remote and recent memory appear grossly intact. Objective Last Vital Signs Temp 36.6 C 03/20/23 11:31 Pulse 65 03/20/23 11:31 Resp 18 03/20/23 11:31 BP 167/89 H 03/20/23 11:31 Pulse Ox 96 03/20/23 11:31 Laboratory Results - last 24 hr 03/19/23 03/19/23 03/19/23 13:50 13:52 16:48 WBC RBC Hgb Hct MCV MCH MCHC RDW Plt Count MPV Sodium Potassium Chloride Carbon Dioxide Anion Gap BUN Creatinine Est GFR (CKD-EPI 2020) Glucose Calcium Magnesium Total Bilirubin AST ALT Alkaline Phosphatase Troponin I < 50 NT-Pro-B Natriuret Pep 118 Total Protein Albumin Procalcitonin TSH 0.60 Ethyl Alcohol < 3.0 COVID-19 Source Nasopharynx SARS-CoV-2 (PCR) Negative Influenza Type A (PCR) Negative Influenza Type B (PCR) Negative RSV (PCR) Negative Add-On Test Request 03/20/23 03/20/23 06:07 08:58 WBC 4.27 L RBC 4.68 Hgb 15.4 Hct 41.9 MCV 90 MCH 32.9 MCHC 36.8 H RDW 12.3 Plt Count 158 MPV 9.4 Sodium 137 Potassium 4.0 Chloride 101 Carbon Dioxide 27.5 Anion Gap 8.5 BUN 12 Creatinine 0.6 L Est GFR (CKD-EPI 2020) 103.20 Glucose 139 H Calcium 9.2 Magnesium 2.0 Total Bilirubin 0.4 AST 27 ALT 38 Alkaline Phosphatase 48 Troponin I NT-Pro-B Natriuret Pep Total Protein 6.2 L Albumin 3.3 L Procalcitonin 0.2 TSH Ethyl Alcohol COVID-19 Source SARS-CoV-2 (PCR) Influenza Type A (PCR) Influenza Type B (PCR) RSV (PCR) Add-On Test Request DONE PAWSS Have you Been Recently Intoxicated or Drunk Within the Last 30 days?: No Have you Ever Experienced Previous Episodes of Alcohol Withdrawal?: No Have you ever Experienced Withdrawal Seizures?: No Have you ever Experienced Delirium Tremens(DT)s?: No Have you ever undergone Alcohol Rehabilitation Treatment (i.e, inpt ot outpatient treatment programs)?: No Have you ever Experienced Blackouts?: No Have you ever Combined Alcohol with other Downers within the last 90 days?: No Have you ever Combined Alcohol with any other Substance of Abuse during the last 90 days?: No Result: 0 Time Spent with Patient Time Spent with Patient: 35-49 minutes Time was spent: preparing to see the patient(eg.review tests), ordering medications,tests, procedures, referring, communicating with other health palliative care specialist, indepentently interpreting results, counseling the patient and care coordination
[2023-03-20] MEDS: Travoprost 0.004% Ophth Sol 2.5 ML BTL OP (20:56)
[2023-03-20] MEDS: cefTRIAXone 1 GM/50 ML BAG IVPB (20:57)
[2023-03-20] MEDS: Enoxaparin 40 MG/0.4 ML SYR SC (20:59)
[2023-03-20] MEDS: Tamsulosin 0.4 MG CAPCR PO (20:59)
[2023-03-20] MEDS: AZITHROMYCIN 500 MG in Normal Saline 250 ML 250 MG IVPB (22:03)
[2023-03-21 02:15] VITALS: PULSE 66; RESP 18; RESP 2; RESP 5; O2SAT 92
[2023-03-21] MEDS: Albuterol/Ipratropium 3 ML UPD VIAL UPD ×2 (02:15→08:39)
[2023-03-21 02:22] VITALS: PULSE 66; RESP 18; RESP 2; RESP 5; O2SAT 97
[2023-03-21 04:12] VITALS: BP 159/73; PULSE 73; RESP 16; TEMP 36.8; O2SAT 93
[2023-03-21] MEDS: methylPREDNISolone SUCC 125 MG VIAL 80 MG IVP (05:18)
[2023-03-21] MEDS: Normal Saline Flush 10 ML SYR IVP ×2 (05:19→08:59)
[2023-03-21 07:50] VITALS: BP 163/88; PULSE 64; RESP 19; TEMP 36.8; O2SAT 94
[2023-03-21 08:10] LABS: Abs Immature Grans 0.02 10^3/uL (0.0-0.06); Absolute Basophil Count 0.01 10^3/uL (0.0-0.2); Absolute Lymphocyte Count 0.57 10^3/uL (1.2-3.4); Absolute Monocyte Count 0.35 10^3/uL (0.1-0.8); Absolute Neutrophil Count 4.64 10^3/uL (1.2-6.7); Basophils % 0.2; HCT 39.3 % (40.0-50.0); HGB 14.2 g/dL (13.5-17.5); Immature Grans % 0.4; Lymphocytes % 10.2; MCH 32.6 pg (27.0-33.0); MCHC 36.1 % (32.0-36.0); MCV 90 fL (80-95); MPV 9.8 fL (8.0-11.0); Monocytes % 6.3; Neutrophils % 82.9; Platelet Count 147 10^3/uL (130-400); RBC 4.35 10^6/uL (4.36-5.78); RDW 12.4 % (11.8-14.1); RDW-SD 41.9 fL; WBC 5.59 10^3/uL (4.4-10.8)
[2023-03-21 08:39] VITALS: RESP 5; RESP 9; O2SAT 90
[2023-03-21] MEDS: Budesonide/Formoterol 160/4.5 6 GM 60 PUFF INH IH (08:42)
[2023-03-21 08:46] LABS: Anion Gap 9.6 mmol/L (3-11); BUN 13 mg/dL (7-18); CO2 26.4 mmol/L (21.0-32.0); CREATININE 0.7 mg/dL (0.70-1.30); Calcium 8.9 mg/dL (8.5-10.1); Chloride 99 mmol/L (98-107); Estimated GFR 98.51 (mL/min/1.73m2); Glucose 131 mg/dL (74-106); Magnesium 2.1 mg/dL (1.8-2.4); Sodium 135 mmol/L (136-145)
[2023-03-21] MEDS: Metoprolol 25 MG TAB PO (08:59)
[2023-03-21] MEDS: Refresh PLUS Eye Drops 0.4ml OP ×2 (09:00→11:39)
[2023-03-21] MEDS: Timolol 0.5% 5 ML BTL OP (09:00)
--- NOTE | 2023-03-21 09:10 | PDOC.CMDIS ---
Date of service: 03/21/23 Time of Service: 09:11 LACE Index Scoring Tool Questions: Length of Stay (in days): 2 Was the patient admitted via the E.D.?: Yes Comorbidities: Chronic Pulmonary Disease E.D. Visits: 1 Answers: Total Score: 8 Risk of Readmission: Low Risk Care Management Discharge Plan Reason for Hospitalization: Acute hypoxic respiratory failure, COPD exacerbation Discharge Plan: Davin will return home today with no new services. He will be driven home via private vehicle by family. He will follow up with his PCP and discharge plan of care. He is happy to be going home. Patient/Family Education Needs: Review discharge instructions and limitations, discussion of self care needs including ask me three. SDOH Health Related Social Needs: No Data to Display
[2023-03-21] MEDS: Polyethylene Glycol 3350 17 GM PACKET PO (09:12)
[2023-03-21 10:47] VITALS: PULSE 68; PULSE 70; PULSE 85; O2SAT 93; O2SAT 95
--- NOTE | 2023-03-21 11:00 | W.PM.DS.N ---
Date of service: 03/21/23 Time of Service: 12:00 DS: Diagnosis Discharge Diagnosis (1) Acute hypoxic respiratory failure: Status: Resolved (2) COPD exacerbation: Status: Acute (3) Viral syndrome: Status: Acute (4) Hypertension: Status: Chronic (5) Constipation: Status: Resolved Discharge Plan Disposition Patient Disposition: Home Condition: Improving Discharge Details Reason For Visit: Acute Hypoxic Respiratory Failure, COPD Exacerbati Admit Date/Time: 03/19/23 18:44 Admit Provider: Barry Cheatham Attending Provider: Barry Cheatham Primary Care Provider: Unknown,Unknown Hospital Course Hospital Course: This is a 72-year-old male patient who chronically smokes tobacco at 1.5 packs per day with past medical history significant for and not exclusive of back pain and tinnitus, not on respiratory medications, who presented to the [facility] ED on 03/19/2023 for evaluation of cold symptoms that began 03/15/2023. Patient's has a fractured heel and he is doing the shopping which he thinks increase his exposure to viral infections from his usual baseline behavior. He continues to smoke tobacco but symptoms persisted and he eventually reported to the ED on 03/18/2023 with initiation of oral antibiotic therapy and inhaler therapy but then returning on the day of admission 03/19/2023 with worsening symptoms. He was borderline hypoxic and VBG in the ED did reveal possible chronic respiratory problems with his bicarb elevated and pCO2 slightly elevated. He did have some oxygen therapy in the ED with improvement of his pulse oximeter from the low 90s to 93%. He denied any significant fever. He reported some loose stools, stated that he did not see any blood. He denied any vomiting. He does go to the [facility] for his health care and does do colon cancer screening with a test card twice a year. He has no history of diverticulosis. CT of the chest did not reveal any acute infiltrates or pulmonary embolus. He was initiated on IV steroids and IV antibiotic therapy with Rocephin and Zithromax having been on oral Augmentin and Zithromax as an outpatient. In the ED the patient WBC was normal and troponin was negative. Patient was treated with nebulizers and inhalers, started on Symbicort. Patient was started on Metoprolol for sustained hypertension. Patient's is injured with a calcanius fracture and is in need of patient's help at home. He did well with exercise oximetry and does not require oxygen. He did not have increased work of breathing. He is discharged to home improved with albuterol inhaler, symbicort, metoprolol, and 5 days of prednisone. He should continue the azithromycin until finished. Stop augmentin. He should follow up with his PCP regarding his blood pressure. Encouraged PCP to refer him to pulmonology. Referrals have to come from the [facility] PCP, Dr Mejia does see [facility] patients that are referred. Home Meds and New Rx's Prescriptions: New albuterol sulfate 90 mcg/actuation HFA aerosol inhaler 2 puff inhalation Q4H PRNQty: 8.5 1RF (DME) Aerochamber MV Spacer See Rx Instructions .Route Qty: 1 0RF Rx Instructions: As directed metoprolol succinate 50 mg tablet extended release 24 hr 50 mg PO DAILY Qty: 30 0RF budesonide-formoterol [Symbicort] 160-4.5 mcg/actuation Hfa Aerosol Inhaler 2 puff inhalation BID Qty: 10.2 1RF prednisone 20 mg tablet 40 mg PO DAILY Qty: 10 0RF Continued carboxymethylcellulose sodium 0.5 % drops 1 drp ophthalmic (eye) QID timolol maleate 0.5 % drops 1 drp ophthalmic (eye) DAILY travoprost 0.004 % drops 1 drp ophthalmic (eye) QPM azithromycin 250 mg tablet See Rx Instructions .ROUTE .COMPLEX Qty: 6 0RF Rx Instructions: For 250 mg dose pack: take 500 mg today (day 1), then 250 mg for 4 days (days 2-5) tamsulosin [Flomax] 0.4 mg capsule 0.4 mg PO QHS Discontinued amoxicillin-pot clavulanate 875-125 mg tablet 1 tab PO BID 7 Days Qty: 14 0RF Discharge Instructions Instructions: Metoprolol (By mouth), Azithromycin (By mouth), Prednisolone (By mouth), Budesonide/Formoterol (By breathing), Asthma (DC), How to Stop Smoking (DC), COPD (Chronic Obstructive Pulmonary Disease) (DC), Chronic Hypertension (DC), Chronic Lung Disease and Infection Prevention (DC) Additional Instructions: Continue Azithromycin until finished. Start Metoprolol once a day for high blood pressure. Start prednisone 40 mg for 5 days Start symbicort inhaler twice daily Use albuterol inhaler as needed for wheezing, shortness of breath. Stop smoking now. Follow up with Dr Storey; we recommend referral to pulmonology; referral has to come from [facility]. Also regarding hypertension and medictation. Stand Alone Forms: Nursing Discharge Form Referrals: Unknown,Unknown [Primary Care Provider] - (The [facility] They will call you with an appointment ) Activity:: Activity as Tolerated Equipment/Supplies:: No Equipment Needed Diet:: As Tolerated Discharge Orders Discharge Orders: Discharge Order (Routine); Ordered 03/21/23 Ordered By: Rossi Davenport Discharge Data Discharge Date/Time-TO BE ENTERED AT DEPARTURE: 03/21/23 13:03 DS: Summary Time Spent with Patient providing and/or coordinating discharge services: Greater than 30 minutes Status at Discharge Functional status at discharge: independent ambulation Overall status at discharge: patient is progressing back to baseline Mental Status: mental status grossly normal Speech and Movement: speech and movement normal Mood: congruent mood Affect: normal affect Quality:SDOH Health Related Social Needs: No Data to Display Exam Psych Mental Status: mental status grossly normal Speech and Movement: speech and movement normal Mood: congruent mood Affect: normal affect DS: Data Vitals/I&O Vitals and I&O: Vital Signs Temperature 36.8 C 03/21/23 07:50 Temperature Source Tympanic 03/21/23 07:50 Pulse 64 03/21/23 07:50 Pulse Rhythm Regular 03/21/23 09:04 Respiratory Rate 19 03/21/23 07:50 Respiratory Effort Normal, Non-Labored 03/21/23 09:04 Respiratory Depth Normal 03/21/23 09:04 Respiratory Pattern Normal 03/21/23 09:04 Blood Pressure 163/88 H 03/21/23 07:50 Blood Pressure Position Sitting 03/19/23 13:39 Pulse Oximetry 90 L 03/21/23 08:39 Oxygen Delivery Method Room Air 03/21/23 08:39 Oxygen Flow Rate 0 03/21/23 08:39 Pain Level 0 03/21/23 04:12 Intake & Output 03/20/23 03/20/23 03/21/23 11:59 23:59 11:59 Intake Total 50 / 50 270 / 270 Balance 50 / 50 270 / 270 Intake: IV 50 / 50 270 / 270 Other: Urine Color Yellow Yellow Yellow Urine Appearance Clear Clear Clear Urine Odor Normal Stool Size Moderate Stool Characteristics Formed Brown Voiding Methods Toilet Toilet Toilet Data Completed and Pending Labs on day of discharge: Labs from last 24 hours 03/21/23 06:48 WBC 5.59 RBC 4.35 L Hgb 14.2 Hct 39.3 L MCV 90 MCH 32.6 MCHC 36.1 H RDW 12.4 Plt Count 147 MPV 9.8 Immature Gran % 0.4 Neutrophils % 82.9 Lymphocytes % 10.2 Monocytes % 6.3 Eosinophils % 0.0 Basophils % 0.2 Nucleated RBC % 0.0 Absolute Neutrophils 4.64 Absolute Lymphocytes 0.57 L Absolute Monocytes 0.35 Absolute Eosinophils 0.00 Absolute Basophils 0.01 Sodium 135 L Potassium 4.0 Chloride 99 Carbon Dioxide 26.4 Anion Gap 9.6 BUN 13 Creatinine 0.7 Est GFR (CKD-EPI 2020) 98.51 Glucose 131 H Calcium 8.9 Magnesium 2.1 Preliminary micro results at discharge 03/19/23 19:03 Blood Culture - Preliminary Blood NO GROWTH 24 HOURS 03/19/23 13:52 Blood Culture - Preliminary Blood NO GROWTH 24 HOURS PFSH All Active Problems (Updated 03/22/23 @ 00:01 by KAIA MADRIGAL) Viral syndrome (Acute) Hypertension (Chronic) COPD exacerbation (Acute) Cough (Acute) Degenerative joint disease of right hip (Acute) Greater trochanteric bursitis of both hips (Acute) DEPO MEDROL 09/24/21 Glaucoma (Chronic) Medical History Tinnitus History of rectal abscess flaca rectal abcess Erectile dysfunction Low back pain Smoker Surgical History History of appendectomy Social History Smoking/Tobacco Use Status: Current every day Tobacco Type: cigarettes Smoking risk assessment performed?: Yes Alcohol Intake: current Alcohol Intake frequency: a few times a week Drug use: Never Substance use type: does not use Housing: house Do you feel safe at home: Yes Do you feel safe in your relationship?: Yes Time Spent with Patient Time Spent with Patient: 45-69 minutes Time was spent: preparing to see the patient(eg.review tests), ordering medications,tests, procedures, referring, communicating with other health director critical care, indepentently interpreting results, counseling the patient and care coordination
== END 2023-03-21 13:03 | disposition home or self-care (01) | DRG 190 ==
LOC: ER 19:31 → MS 20:29
PROVIDERS: Internal Medicine; Physician Assistant; Admitting Provider Family Medicine; Emergency Provider Registered Nurse Emergency; Visit Provider Family Medicine
DX: J44.1 Chronic obstructive pulmonary disease with (acute) exacerbation (principal); J96.01 Acute respiratory failure with hypoxia; J06.9 Acute upper respiratory infection, unspecified; I10 Essential (primary) hypertension; B34.9 Viral infection, unspecified; K59.00 Constipation, unspecified; R10.32 Left lower quadrant pain; F17.210 Nicotine dependence, cigarettes, uncomplicated; M16.11 Unilateral primary osteoarthritis, right hip; H40.9 Unspecified glaucoma; M54.50 Low back pain, unspecified
CPT/HCPCS: 00123; 36415; 71275; 80048; 80053; 82805; 84145; 85027; 87040; 87637; 93005; 93308; 94618; 94640; 96361; 96374; 99285; J1650; 80320; 83605; 83735; 83880; 84443; 84484; 85025; 93010; 94667; 94668; 94760; 99223; 99232; 99239; J0456; J0696; J1100; J2930; J3490; J7613; J7620